=== PATIENT | female | born 1990 | race Caucasian/White ===

== ENCOUNTER 2020-04-14 19:04 | Emergency (ER) | payer OTHER ==
[~2020-04-14] VITALS: Ht 165.1 cm; Wt 67.0 kg
--- OUTSIDE RECORDS SUMMARY | 2020-04-14 19:12 | XMS REPORT | Continuity of Care Document ---
Author Organization Unknown Address Unknown Phone Unavailable Allergies There is no data. Medications There is no data. Problems There is no data. Procedures There is no data. Results There is no data. Encounters ACCT No. Visit Date/Time Discharge Status Pt. Type Provider Facility Loc./Unit Complaint [id number] 03/03/2019 09:30:00 03/03/2019 23:59: 59 [facility]
[2020-04-14 19:28] LABS: WHITE BLOOD COUNT 9.6 10^3/uL (4.3-11.0)
[2020-04-14 19:29] LABS: BASOPHILS # (AUTO) 0.1 10^3/uL (0.0-0.1); BASOPHILS % (AUTO) 1 % (0-10); EOSINOPHILS % (AUTO) 0 % (0-10); HEMATOCRIT 36 % (35-52); HEMOGLOBIN 12.6 G/DL (11.5-16.0); LYMPHOCYTES # (AUTO) 2.1 X 10^3 (1.0-4.0); LYMPHOCYTES % (AUTO) 22 % (12-44); MEAN CORPUSCULAR HEMOGLOBIN 31 PG (25-34); MEAN CORPUSCULAR HGB CONC 35 G/DL (32-36); MEAN CORPUSCULAR VOLUME 89 FL (80-99); MEAN PLATELET VOLUME 10.5 FL (7.4-10.4); MONOCYTES # (AUTO) 0.8 X 10^3 (0.0-1.0); MONOCYTES % (AUTO) 9 % (0-12); NEUTROPHILS # (AUTO) 6.5 X 10^3 (1.8-7.8); NEUTROPHILS % (AUTO) 68 % (42-75); PLATELET COUNT 241 10^3/uL (130-400)
[2020-04-14] MEDS ORDERED: NS IV 1000 ML 1,000 ML IV ONE (19:30)
[2020-04-14] MEDS ORDERED: ONDANSETRON 4 MG/2 ML (SDV) Z0FRAN IVP ONE (19:30)
--- NOTE | 2020-04-14 19:32 | ED GU-Female ---
General Chief Complaint: Abdominal/GI Problems Stated Complaint: WEAKNESS History of Present Illness Date Seen by Provider: Apr 14, 2020 Time Seen by Provider: 19:15 Initial Comments Patient is a weeks with natural TRIPLETS test 2 other children at home that nausea vomiting through the day no fever no chills no diarrhea is just getting worn out because of the loss of fluid and the lack of intake. No blood in the vomitus no other symptomatology Timing/Duration: week Severity/Quality: moderate Modifying Factors: Improves With Eating, Improves With Movement Associated Symptoms: No diaphoresis, No fever/chills, No lower back pain; nausea/vomiting; No syncope, No urinary frequency Allergies and Home Medications Allergies Coded Allergies: Penicillins (Verified Allergy, Intermediate, Hives, 04/14/20) Patient Home Medication List Home Medication List Reviewed: Yes Review of Systems Review of Systems Constitutional: No chills; dizziness; No fever EENTM: No hearing loss, No ear pain, No eye pain Respiratory: no symptoms reported Cardiovascular: no symptoms reported Gastrointestinal: No abdominal pain; nausea, vomiting Genitourinary: denies dysuria, denies frequency Musculoskeletal: No joint swelling, No muscle pain Skin: No lesions Psychiatric/Neurological: No Symptoms Reported Past Yaggfdi-Ycfqlo-Avitpc Hx Past Med/Social Hx: Reviewed Nursing Past Med/Soc Hx Patient Social History Recent Foreign Travel: No Contact w/Someone Who Travel: No Physical Exam Vital Signs Vital Signs - First Documented 04/14/20 19:05 Temp 37.4 Pulse 109 Resp 14 B/P (MAP) 133/58 (83) Pulse Ox 100 O2 Delivery Room Air Capillary Refill : Height, Weight, BMI Height: '" Weight: lbs. oz. kg; BMI Method: General Appearance: WD/WN, moderate distress HEENT: PERRL/EOMI, normal ENT inspection, TMs normal, pharynx normal Neck: full range of motion, normal inspection Cardiovascular: regular rate, rhythm, no murmur Respiratory: chest non-tender, lungs clear, normal breath sounds Gastrointestinal: normal bowel sounds, non tender; No guarding, No rebound Neurologic/Psychiatric: no motor/sensory deficits, alert, normal mood/affect Skin: normal color, warm/dry Progress/Results/Core Measures Suspected Sepsis SIRS Temperature: Pulse: Respiratory Rate: Laboratory Tests 04/14/20 19:20: White Blood Count 9.6 Blood Pressure / Mean: Laboratory Tests 04/14/20 19:20: Creatinine 0.65, Platelet Count 241, Total Bilirubin 0.7 Results/Orders Lab Results Laboratory Tests Test 04/14/20 19:20 04/14/20 21:13 Range/Units White Blood Count 9.6 4.3-11.0 10^3/uL Red Blood Count 4.05 L 4.35-5.85 10^6/uL Hemoglobin 12.6 11.5-16.0 G/DL Hematocrit 36 35-52 % Mean Corpuscular Volume 89 80-99 FL Mean Corpuscular Hemoglobin 31 25-34 PG Mean Corpuscular Hemoglobin Concent 35 32-36 G/DL Red Cell Distribution Width 12.0 10.0-14.5 % Platelet Count 241 130-400 10^3/uL Mean Platelet Volume 10.5 H 7.4-10.4 FL Neutrophils (%) (Auto) 68 42-75 % Lymphocytes (%) (Auto) 22 12-44 % Monocytes (%) (Auto) 9 0-12 % Eosinophils (%) (Auto) 0 0-10 % Basophils (%) (Auto) 1 0-10 % Neutrophils # (Auto) 6.5 1.8-7.8 X 10^3 Lymphocytes # (Auto) 2.1 1.0-4.0 X 10^3 Monocytes # (Auto) 0.8 0.0-1.0 X 10^3 Eosinophils # (Auto) 0.0 0.0-0.3 10^3/uL Basophils # (Auto) 0.1 0.0-0.1 10^3/uL Sodium Level 137 135-145 MMOL/L Potassium Level 3.3 L 3.6-5.0 MMOL/L Chloride Level 102 98-107 MMOL/L Carbon Dioxide Level 21 21-32 MMOL/L Anion Gap 14 5-14 MMOL/L Blood Urea Nitrogen 9 7-18 MG/DL Creatinine 0.65 0.60-1.30 MG/DL Estimat Glomerular Filtration Rate > 60 BUN/Creatinine Ratio 14 Glucose Level 84 70-105 MG/DL Calcium Level 9.3 8.5-10.1 MG/DL Corrected Calcium 9.0 8.5-10.1 MG/DL Total Bilirubin 0.7 0.1-1.0 MG/DL Aspartate Amino Transf (AST/SGOT) 19 5-34 U/L Alanine Aminotransferase (ALT/SGPT) 36 0-55 U/L Alkaline Phosphatase 52 40-136 U/L Total Protein 7.1 6.4-8.2 GM/DL Albumin 4.4 3.2-4.5 GM/DL Lipase 32 8-78 U/L Urine Color DARK YELLOW Urine Clarity CLOUDY Urine pH 6 5-9 Urine Specific [place] >=1.030 1.016-1.022 Urine Protein TRACE H NEGATIVE Urine Glucose (UA) NEGATIVE NEGATIVE Urine Ketones 3+ H NEGATIVE Urine Nitrite NEGATIVE NEGATIVE Urine Bilirubin 1+ H NEGATIVE Urine Urobilinogen 1.0 < = 1.0 MG/DL Urine Leukocyte Esterase 2+ H NEGATIVE Urine RBC (Auto) TRACE-I NEGATIVE Urine RBC NONE /HPF Urine WBC 50-100 H /HPF Urine Squamous Epithelial Cells 10-25 H /HPF Urine Crystals NONE /LPF Urine Bacteria LARGE H /HPF Urine Casts NONE /LPF Urine Mucus LARGE H /LPF Urine Culture Indicated YES My Orders Orders - LEVAR BROWER JR, MD Ns Iv 1000 Ml (Sodium Chloride 0.9%) (04/14/20 19:30) Ondansetron Injection (Zofran Injectio (04/14/20 19:30) Ua Culture If Indicated (04/14/20 19:22) Cbc With Automated Diff (04/14/20 19:25) Comprehensive Metabolic Panel (04/14/20 19:25) Lipase (04/14/20 19:25) Ns Iv 1000 Ml (Sodium Chloride 0.9%) (04/14/20 20:30) Urine Culture (04/14/20 21:13) Ceftriaxone For Iv Use (Rocephin For I (04/14/20 21:30) Medications Given in ED Current Medications Medications Dose Ordered Sig/Halley Route Start Time Stop Time Status Last Admin Dose Admin Ondansetron HCl 4 mg ONCE ONCE IVP 04/14/20 19:30 04/14/20 19:31 DC 04/14/20 19:31 4 MG Sodium Chloride 1,000 ml @ 999 mls/hr Q1H1M ONCE IV 04/14/20 19:30 04/14/20 20:30 DC 04/14/20 19:31 999 MLS/HR Vital Signs/I&O 04/14/20 19:05 Temp 37.4 Pulse 109 Resp 14 B/P (MAP) 133/58 (83) Pulse Ox 100 O2 Delivery Room Air Capillary Refill : Departure Communication (Admissions) Patient feeling better discussed UTI do feel like that helped essentially what was going on. Impression Primary Impression: Urinary tract infection Qualified Codes: N30.01 - Acute cystitis with hematuria Additional Impression: Hyperemesis arising during Disposition: HOME, SELF-CARE Condition: Stable Departure-Patient Inst. Referrals: NO,LOCAL PHYSICIAN (PCP/Family) Primary Care Physician Patient Instructions: Urinary Tract Infection, Adult (DC), Nausea and Vomiting of (DC) Scripts Cephalexin (Keflex) 500 Mg Capsule 500 MG PO QID for 10 Days, CAP Prov: LEVAR BROWER JR, MD 04/14/20 LEVAR BROWER JR, MD Apr 14, 2020 19:32
[2020-04-14 19:41] LABS: ALANINE AMINOTRANSFERASE 36 U/L (0-55); ALBUMIN 4.4 GM/DL (3.2-4.5); ALKALINE PHOSPHATASE 52 U/L (40-136); BILIRUBIN,TOTAL 0.7 MG/DL (0.1-1.0); BUN/CREATININE RATIO 14; CALCIUM 9.3 MG/DL (8.5-10.1); CARBON DIOXIDE 21 MMOL/L (21-32); CHLORIDE 102 MMOL/L (98-107); CREATININE SERUM 0.65 MG/DL (0.60-1.30); GFR ESTIMATED > 60; GLUCOSE 84 MG/DL (70-105); LIPASE 32 U/L (8-78); POTASSIUM 3.3 MMOL/L (3.6-5.0); SODIUM 137 MMOL/L (135-145); TOTAL PROTEIN 7.1 GM/DL (6.4-8.2)
[2020-04-14] MEDS ORDERED: NS IV 1000 ML 1,000 ML IV SCH (20:30)
[2020-04-14 21:23] LABS: CLARITY,URINE CLOUDY; COLOR,URINE DARK YELLOW; GLUCOSE, URINE (UA) NEGATIVE (NEGATIVE); PH,URINE 6 (5-9); PROTEIN,URINE TRACE (NEGATIVE)
[2020-04-14 21:24] LABS: BACTERIA,URINE LARGE /HPF; BILIRUBIN,URINE 1+ (NEGATIVE); KETONES,URINE 3+ (NEGATIVE); LEUKOCYTE ESTERASE ,URINE 2+ (NEGATIVE); NITRITE,URINE NEGATIVE (NEGATIVE); WBC,URINE 50-100 /HPF
[2020-04-14] MEDS ORDERED: cefTRIAXone FOR IV USE 1,000 MG in WATER (STERILE) FOR INJECTION 10 ML IV ONE (21:30)
[2020-04-14] MEDS ORDERED: CEPH-507 PO (21:33)
[2020-04-14 21:43] VITALS: BP 109/55
== END 2020-04-14 21:43 | disposition home or self-care (01) ==
LOC: ER FS 19:08
DX: N30.01 Acute cystitis with hematuria (principal); O21.0 Mild hyperemesis gravidarum; Z3A.08 8 weeks gestation of pregnancy; Z88.0 Allergy status to penicillin
CPT/HCPCS: 36415; 80053; 81000; 83690; 85025; 87088

== ENCOUNTER → 2020-05-03 | Outpatient (CLI) | payer OTHER, MEDICAID ==
[~2020-05-03] MED LIST: CEPH-507 PO
== END ==
LOC: LABNPT 16:43
PROVIDERS: ATTEND Family Medicine
DX: O09.90 Supervision of high risk pregnancy, unspecified, unspecified trimester (principal)
CPT/HCPCS: 87491; 87591

== ENCOUNTER → 2020-05-03 | Outpatient (CLI) | payer OTHER, MEDICAID ==
[2020-05-03 13:16] LABS: BASOPHILS % (AUTO) 1 % (0-10); EOSINOPHILS % (AUTO) 0 % (0-10); HEMATOCRIT 35 % (35-52); HEMOGLOBIN 11.9 G/DL (11.5-16.0); LYMPHOCYTES % (AUTO) 20 % (12-44); MEAN CORPUSCULAR HEMOGLOBIN 31 PG (25-34); MEAN CORPUSCULAR HGB CONC 34 G/DL (32-36); MEAN CORPUSCULAR VOLUME 91 FL (80-99); MEAN PLATELET VOLUME 10.8 FL (7.4-10.4); MONOCYTES % (AUTO) 6 % (0-12); NEUTROPHILS # (AUTO) 7.7 X 10^3 (1.8-7.8); NEUTROPHILS % (AUTO) 73 % (42-75); PLATELET COUNT 239 10^3/uL (130-400); RED CELL DISTRIBUTION WIDTH 12.5 % (10.0-14.5); WHITE BLOOD COUNT 10.5 10^3/uL (4.3-11.0)
[2020-05-03 13:17] LABS: BASOPHILS # (AUTO) 0.1 10^3/uL (0.0-0.1); LYMPHOCYTES # (AUTO) 2.1 X 10^3 (1.0-4.0); MONOCYTES # (AUTO) 0.6 X 10^3 (0.0-1.0)
== END ==
LOC: LAB FS 12:46
PROVIDERS: ATTEND Family Medicine
DX: O09.90 Supervision of high risk pregnancy, unspecified, unspecified trimester (principal); O30.109 Triplet pregnancy, unspecified number of placenta and unspecified number of amniotic sacs, unspecified trimester
CPT/HCPCS: 36415; 80055; 86703; 87088

== ENCOUNTER 2020-05-08 16:27 | Emergency (ER) | payer OTHER, MEDICAID ==
[~2020-05-08] VITALS: Ht 165.1 cm; Wt 68.9 kg
--- NOTE | 2020-05-08 16:40 | ED General ---
General Stated Complaint: VOMITING,ABD PAIN History of Present Illness Date Seen by Provider: May 08, 2020 Time Seen by Provider: 16:39 Initial Comments Patient presenting to emergency department for evaluation of nausea and vomiting in her first trimester . She has triplets and is following with Dr. Tineo and is approximately 12 weeks . She says that she has been having vomiting throughout most of her and she has been taking Zofran which helps somewhat she says it has stopped working and she tried taking Pepcid yesterday but feels that it made her feel worse. She denies any abdominal pain vaginal bleeding dysuria or dizziness. She is frustrated that she cannot hold anything down. In addition to the Zofran she has tried Unisom and vitamin B6 wi thout any improvement. She is in no obvious distress with normal vital signs. Allergies and Home Medications Allergies Coded Allergies: Penicillins (Verified Allergy, Intermediate, Hives, 04/14/20) Home Medications Cephalexin 500 Mg Capsule, 500 MG PO QID Prescribed by: LEVAR BROWER on 04/14/20 [id number] Patient Home Medication List Home Medication List Reviewed: Yes Review of Systems Review of Systems Constitutional: no symptoms reported EENTM: no symptoms reported Respiratory: no symptoms reported Cardiovascular: no symptoms reported Gastrointestinal: nausea, vomiting Genitourinary: no symptoms reported Musculoskeletal: no symptoms reported Skin: no symptoms reported Psychiatric/Neurological: No Symptoms Reported All Other Systems Reviewed Negative Unless Noted: Yes Past Otaqteq-Gmlivw-Btfrqn Hx Patient Social History Recent Foreign Travel: No Contact w/Someone Who Travel: No Seasonal Allergies Seasonal Allergies: No Past Medical History Surgeries: No Respiratory: No Cardiac: No Neurological: No Genitourinary: No Gastrointestinal: No Musculoskeletal: No Endocrine: No HEENT: No Cancer: No Psychosocial: No Integumentary: No Physical Exam Vital Signs Vital Signs - First Documented 05/08/20 16:32 Temp 37.0 Pulse 85 Resp 16 B/P (MAP) 123/56 (78) Pulse Ox 99 O2 Delivery Room Air Capillary Refill : Height, Weight, BMI Height: '" Weight: lbs. oz. kg; 24.00 BMI Method: General Appearance: No Apparent Distress, WD/WN HEENT: PERRL/EOMI Neck: Supple Respiratory: No Respiratory Distress Cardiovascular: Regular Rate, Rhythm Gastrointestinal: Non Tender, Soft Back: Normal Inspection Extremity: Normal Capillary Refill Neurologic/Psychiatric: Alert, Oriented x3 Skin: Warm/Dry Progress/Results/Core Measures Suspected Sepsis SIRS Temperature: Pulse: Respiratory Rate: Laboratory Tests 05/08/20 16:45: White Blood Count 12.2H Blood Pressure / Mean: Laboratory Tests 05/08/20 16:45: Creatinine 0.59L, Platelet Count 240, Total Bilirubin 0.4 Results/Orders Lab Results Laboratory Tests Test 05/08/20 16:45 Range/Units White Blood Count 12.2 H 4.3-11.0 10^3/uL Red Blood Count 3.76 L 4.35-5.85 10^6/uL Hemoglobin 11.8 11.5-16.0 G/DL Hematocrit 34 L 35-52 % Mean Corpuscular Volume 90 80-99 FL Mean Corpuscular Hemoglobin 31 25-34 PG Mean Corpuscular Hemoglobin Concent 35 32-36 G/DL Red Cell Distribution Width 12.6 10.0-14.5 % Platelet Count 240 130-400 10^3/uL Mean Platelet Volume 10.6 H 7.4-10.4 FL Neutrophils (%) (Auto) 75 42-75 % Lymphocytes (%) (Auto) 18 12-44 % Monocytes (%) (Auto) 7 0-12 % Eosinophils (%) (Auto) 1 0-10 % Basophils (%) (Auto) 0 0-10 % Neutrophils # (Auto) 9.1 H 1.8-7.8 X 10^3 Lymphocytes # (Auto) 2.1 1.0-4.0 X 10^3 Monocytes # (Auto) 0.8 0.0-1.0 X 10^3 Eosinophils # (Auto) 0.1 0.0-0.3 10^3/uL Basophils # (Auto) 0.1 0.0-0.1 10^3/uL Sodium Level 136 135-145 MMOL/L Potassium Level 3.5 L 3.6-5.0 MMOL/L Chloride Level 102 98-107 MMOL/L Carbon Dioxide Level 21 21-32 MMOL/L Anion Gap 13 5-14 MMOL/L Blood Urea Nitrogen 11 7-18 MG/DL Creatinine 0.59 L 0.60-1.30 MG/DL Estimat Glomerular Filtration Rate > 60 BUN/Creatinine Ratio 19 Glucose Level 78 70-105 MG/DL Calcium Level 9.4 8.5-10.1 MG/DL Corrected Calcium 9.3 8.5-10.1 MG/DL Total Bilirubin 0.4 0.1-1.0 MG/DL Aspartate Amino Transf (AST/SGOT) 14 5-34 U/L Alanine Aminotransferase (ALT/SGPT) 23 0-55 U/L Alkaline Phosphatase 49 40-136 U/L Total Protein 6.9 6.4-8.2 GM/DL Albumin 4.1 3.2-4.5 GM/DL My Orders Orders - VELIA DUARTE DO D5 Ns 1000 Ml Iv Solution (Dextrose 5%/0 (05/08/20 16:45) Metoclopramide Injection (Reglan Injecti (05/08/20 16:45) Diphenhydramine Injection (Benadryl Inje (05/08/20 16:45) Cbc With Automated Diff (05/08/20 16:40) Comprehensive Metabolic Panel (05/08/20 16:40) Ua Culture If Indicated (05/08/20 16:40) Iv/Invasive Line Insertion .IV start (05/08/20 16:40) Potassium Chloride (Tablet) (K Dur Table (05/08/20 17:30) Medications Given in ED Current Medications Medications Dose Ordered Sig/Halley Route Start Time Stop Time Status Last Admin Dose Admin Diphenhydramine HCl 25 mg ONCE ONCE IVP 05/08/20 16:45 05/08/20 16:46 DC 05/08/20 16:56 25 MG Metoclopramide HCl 5 mg ONCE ONCE IVP 05/08/20 16:45 05/08/20 16:46 DC 05/08/20 16:56 5 MG Vital Signs/I&O 05/08/20 16:32 Temp 37.0 Pulse 85 Resp 16 B/P (MAP) 123/56 (78) Pulse Ox 99 O2 Delivery Room Air Capillary Refill : Progress Note : Progress Note Will check labs urinalysis and start treatment with D5NS Reglan and Benadryl and then reassess. Patient says that her nausea has improved significantly and she is able to drink fluids by mouth with no difficulty and I offered more fluids and antiemetics but she said she felt very well and would like to go home now. Given patient appears well with normal vital signs benign physical exam workup she'll be discharged in stable condition told to follow with primary provider and come back to the ED sooner with any worsening pain fevers vomiting or other general concerns. Patient aware and agreeable with plan and verbalized understanding of the above instructions. Departure Impression Primary Impression: Dehydration Additional Impression: Nausea and vomiting Qualified Codes: R11.2 - Nausea with vomiting, unspecified Disposition: HOME, SELF-CARE Condition: Stable Departure-Patient Inst. Referrals: DAVID TINEO MD (PCP/Family) Primary Care Physician Patient Instructions: Nausea and Vomiting of (DC) Add. Discharge Instructions: Take 25mg of benadryl with the reglan. Scripts Metoclopramide HCl (Reglan) 5 Mg Tablet 5 MG PO Q6H PRN for NAUSEA/VOMITING-1ST LINE, #14 TAB Prov: VELIA DUARTE DO 05/08/20 VELIA DUARTE DO May 08, 2020 16:40
[2020-05-08] MEDS ORDERED: D5 NS 1000 ML IV SOLUTION 1,000 ML IV SCH (16:45)
[2020-05-08] MEDS ORDERED: METOCLOPRAMIDE INJ 10 MG/2 ML (REGLAN) IVP ONE (16:45)
[2020-05-08] MEDS ORDERED: diphenhydrAMINE 50 MG/ML INJ (BENADRYL) IVP ONE (16:45)
[2020-05-08 17:05] LABS: HEMOGLOBIN 11.8 G/DL (11.5-16.0); MEAN CORPUSCULAR HEMOGLOBIN 31 PG (25-34); WHITE BLOOD COUNT 12.2 10^3/uL (4.3-11.0)
[2020-05-08 17:06] LABS: BASOPHILS # (AUTO) 0.1 10^3/uL (0.0-0.1); BASOPHILS % (AUTO) 0 % (0-10); EOSINOPHILS # (AUTO) 0.1 10^3/uL (0.0-0.3); EOSINOPHILS % (AUTO) 1 % (0-10); HEMATOCRIT 34 % (35-52); LYMPHOCYTES # (AUTO) 2.1 X 10^3 (1.0-4.0); LYMPHOCYTES % (AUTO) 18 % (12-44); MEAN CORPUSCULAR HGB CONC 35 G/DL (32-36); MEAN CORPUSCULAR VOLUME 90 FL (80-99); MEAN PLATELET VOLUME 10.6 FL (7.4-10.4); MONOCYTES # (AUTO) 0.8 X 10^3 (0.0-1.0); MONOCYTES % (AUTO) 7 % (0-12); NEUTROPHILS # (AUTO) 9.1 X 10^3 (1.8-7.8); NEUTROPHILS % (AUTO) 75 % (42-75); PLATELET COUNT 240 10^3/uL (130-400); RED CELL DISTRIBUTION WIDTH 12.6 % (10.0-14.5)
[2020-05-08 17:23] LABS: ALKALINE PHOSPHATASE 49 U/L (40-136); BILIRUBIN,TOTAL 0.4 MG/DL (0.1-1.0); BUN/CREATININE RATIO 19; CALCIUM 9.4 MG/DL (8.5-10.1); CARBON DIOXIDE 21 MMOL/L (21-32); CHLORIDE 102 MMOL/L (98-107); CREATININE SERUM 0.59 MG/DL (0.60-1.30); GFR ESTIMATED > 60; GLUCOSE 78 MG/DL (70-105); POTASSIUM 3.5 MMOL/L (3.6-5.0); SODIUM 136 MMOL/L (135-145)
[2020-05-08 17:24] LABS: ALANINE AMINOTRANSFERASE 23 U/L (0-55); ALBUMIN 4.1 GM/DL (3.2-4.5); TOTAL PROTEIN 6.9 GM/DL (6.4-8.2)
[2020-05-08] MEDS ORDERED: KCL 20 MEQ TAB (K-DUR) PO ONE (17:30)
[2020-05-08] MEDS ORDERED: METO5TAB75 PO (17:44)
[2020-05-08 17:57] LABS: BACTERIA,URINE MODERATE /HPF; BILIRUBIN,URINE NEGATIVE (NEGATIVE); CLARITY,URINE SL CLOUDY; COLOR,URINE YELLOW; GLUCOSE, URINE (UA) 2+ (NEGATIVE); KETONES,URINE 3+ (NEGATIVE); LEUKOCYTE ESTERASE ,URINE NEGATIVE (NEGATIVE); NITRITE,URINE NEGATIVE (NEGATIVE); PROTEIN,URINE NEGATIVE (NEGATIVE); RBC,URINE RARE /HPF; SQUAMOUS EPITHELIAL CELL,UR >50 /HPF; WBC,URINE 25-50 /HPF
[2020-05-08 18:03] VITALS: BP 107/53
--- NOTE | 2020-05-08 18:27 | NUR ---
This RN discharged the pt prior to noticing the potassium ordered. I phoned the pt and offered the potassium if she wanted to come back or she could suppliment it with food or OTC suppliments. Pt stated she was at [employer] and would possibly buy OTC potassium but declined wanting to come back for the ordered 20 meq in the ED.
== END 2020-05-08 18:03 | disposition home or self-care (01) ==
LOC: EDUNIT# 16:27 → ER FS 16:29
DX: O26.891 Other specified pregnancy related conditions, first trimester (principal); E86.0 Dehydration; R11.2 Nausea with vomiting, unspecified; Z3A.12 12 weeks gestation of pregnancy; Z88.0 Allergy status to penicillin
CPT/HCPCS: 36415; 80053; 81000; 85025; 87088

== ENCOUNTER → 2020-08-02 | Outpatient (CLI) | payer OTHER, MEDICAID ==
[~2020-08-02] MED LIST changes: +METO5TAB75 PO
== END ==
LOC: LABNPT 14:35
PROVIDERS: ATTEND Family Medicine
DX: Z01.89 Encounter for other specified special examinations (principal)
CPT/HCPCS: 87088

== ENCOUNTER → 2020-08-23 | Outpatient (CLI) | payer OTHER, MEDICAID ==
[2020-08-23 12:53] LABS: WHITE BLOOD COUNT 12.7 10^3/uL (4.3-11.0)
[2020-08-23 12:54] LABS: HEMOGLOBIN 10.2 G/DL (11.5-16.0); MEAN PLATELET VOLUME 10.3 FL (7.4-10.4)
== END ==
LOC: LAB FS 11:16
PROVIDERS: ATTEND Family Medicine
DX: O30.109 Triplet pregnancy, unspecified number of placenta and unspecified number of amniotic sacs, unspecified trimester (principal); Z3A.00 Weeks of gestation of pregnancy not specified
CPT/HCPCS: 36415; 82950; 85027; 86780

== ENCOUNTER → 2021-11-27 | Outpatient (CLI) | payer OTHER | LOC: LAB FS 14:24 | PROVIDERS: ATTEND Family Medicine | DX: N92.5 Other specified irregular menstruation (principal) | CPT/HCPCS: 36415; 84703 ==